=== PATIENT | male | born 1960 | race Caucasian/White ===

== ENCOUNTER 2022-02-22 16:14 | Emergency (ER) | payer BC ==
[~2022-02-22] VITALS: Ht 175.3 cm; Wt 103.5 kg
[2022-02-22 16:21] VITALS: BP 156/87
--- NOTE | 2022-02-22 16:28 | NUR ---
PT AMB TO [facility]
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
[2022-02-22] MEDS ORDERED: NAPR-1560 PO (17:05)
[2022-02-22] MEDS ORDERED: IBUPROFEN 800 MG TAB PO ONE (17:05)
[2022-02-22] MEDS ORDERED: CYCL-711 PO (17:05)
[2022-02-22 17:20] VITALS: BP 124/76
--- NOTE | 2022-02-22 17:20 | NUR ---
Patient discharged with v/s stable. Written and verbal after care instructions given and explained. Patient alert, oriented and verbalized understanding of instructions. Ambulatory with steady gait. All questions addressed prior to discharge. ID band removed. Patient advised to follow up with PMD. Rx of FLEXERIL given. Patient educated on indication of medication including possible reaction and side effects. Opportunity to ask questions provided and answered.
== END 2022-02-22 17:20 | disposition home or self-care (01) ==
LOC: MED 16:14
DX: S16.1XXA Strain of muscle, fascia and tendon at neck level, initial encounter (principal); R03.0 Elevated blood-pressure reading, without diagnosis of hypertension; V49.9XXA Car occupant (driver) (passenger) injured in unspecified traffic accident, initial encounter; Y93.89 Activity, other specified; Y92.89 Other specified places as the place of occurrence of the external cause; Y99.8 Other external cause status
CPT/HCPCS: 99283